=== PATIENT | female | born 1975 | race Caucasian/White ===

== ENCOUNTER → 2017-08-28 | Outpatient (CLI) | payer BC ==
[~2017-08-28] MED LIST: BIRTH CONTROL; CETI10; DEPO; DIPH50 PO; FLUT.05NI; GLIP2.5ER PO; HYDACE5 PO; HYDACE5325 PO; Humalog100 UNIT/1 SC; IBUP800 PO; INSLI75/25 SC; INSULANI SC; INSULANPEN SC; LEVSOD50 PO; LOPE2C PO; LORA.5 PO; METF500 PO; METF500C; METF850 PO; Novolog100 UNIT/1; OMEP20ER PO; ONDA4 PO; OXYACE5T PO; PIOG15; PRED20 PO; PRED5; PRODEXEL PO; PROM25 PO; RANI150 PO; RXHYD5325 PO; RXHYDACE PO; RXONDA4ODT MM; SERT50 PO; SUCR1 PO; ZOLP5 PO
[2017-08-30 12:39] LABS: HPV Genotype 16 Not Detected (NOTDET); HPV Genotype 18 Not Detected (NOTDET)
[2017-09-14 13:35] LABS: HPV High Risk Other Not Detected (NOTDET)
== END | disposition home or self-care (01) ==
LOC: LAB 18:32
PROVIDERS: Obstetrics & Gynecology
DX: Z01.419 Encounter for gynecological examination (general) (routine) without abnormal findings (principal)
CPT/HCPCS: 87624; G0123

== ENCOUNTER → 2018-02-14 | Outpatient (CLI) | payer BC | END | disposition home or self-care (01) | LOC: LAB 17:07 → LAB SHORT 17:07 | DX: R30.0 Dysuria (principal) | CPT/HCPCS: 87077; 87086; 87186 ==

== ENCOUNTER → 2018-09-25 | Outpatient (CLI) | payer BC | LOC: LAB EV 18:29 → LAB SHORT 18:29 | DX: N39.0 Urinary tract infection, site not specified (principal) | CPT/HCPCS: 87077; 87086; 87186 ==

== ENCOUNTER → 2018-10-24 | Outpatient (CLI) | payer BC | END | disposition home or self-care (01) | LOC: PLD 08:17 → LAB SHORT 08:17 | DX: N93.8 Other specified abnormal uterine and vaginal bleeding (principal) | CPT/HCPCS: 88305 ==

== ENCOUNTER 2018-11-16 11:21 | Day surgery (SDC) | payer BC ==
[~2018-11-16] VITALS: Ht 162.6 cm; Wt 248.4 kg
--- NOTE | 2018-11-16 13:23 | NUR ---
11/16/18 1323 Emeka Marinelli PT REPORTS ALLERGY TO LATEX AND BETADINE. VERIFIED WITH PT THE USE OF BETADINE GEL FOR PREP. PT OKAY WITH USING BETADINE GEL. WILL WASH PREP OFF AFTER PROCEDURE. USED CHLORAPREP FOR ABD PREP. NO LATEX ON FIELD.
--- NOTE | 2018-11-16 14:33 | NUR ---
11/16/18 1433 Maryam Ramos g 121
== END 2018-11-16 15:15 | disposition home or self-care (01) ==
LOC: ORSCSDS 11:21
PROVIDERS: Obstetrics & Gynecology
PROC: 0UT74ZZ Resection of Bilateral Fallopian Tubes, Percutaneous Endoscopic Approach (ICD-10-PCS; principal; 2018-11-16 12:30)
PROC: 0U5B8ZZ Destruction of Endometrium, Via Natural or Artificial Opening Endoscopic (ICD-10-PCS; principal; 2018-11-16 12:30)
DX: N92.1 Excessive and frequent menstruation with irregular cycle (principal); Z30.2 Encounter for sterilization; N83.8 Other noninflammatory disorders of ovary, fallopian tube and broad ligament; E11.9 Type 2 diabetes mellitus without complications; E03.9 Hypothyroidism, unspecified; E66.01 Morbid (severe) obesity due to excess calories; Z68.41 Body mass index [BMI] 40.0-44.9, adult; Z79.899 Other long term (current) drug therapy; Z79.82 Long term (current) use of aspirin
CPT/HCPCS: 82947; 88302; 88305; J1885; J2250; J2405; J2704; J2710; J2765; J3010

== ENCOUNTER → 2018-12-28 | Outpatient (CLI) | payer BC | END | disposition home or self-care (01) | LOC: LAB EV 13:21 → LAB SHORT 13:21 | DX: R30.0 Dysuria (principal); R35.0 Frequency of micturition | CPT/HCPCS: 87077; 87086; 87186 ==

== ENCOUNTER 2019-08-01 08:28 | Day surgery (SDC) | payer BC ==
[~2019-08-01] VITALS: Ht 160 cm; Wt 110.8 kg
[~2019-08-01 08:28] MED LIST changes: +ASCO500 PO; +GVOKE SYRI1 MG/0.2 M SC; +THERA1 EACH PO; +ZINC PO
--- NOTE | 2019-08-01 09:06 | NUR ---
History, Chart, Medications and Allergies reviewed before start of procedure. Patient confirms NPO status and agrees with scheduled surgery. Lungs clear T/O to Auscultation. Patient reports completing Chlorhexadine shower X1 prior to admission to hospital.
--- NOTE | 2019-08-01 09:48 | NUR ---
PATIENT SURGERY DELAYED FOR ANOTHER PROCEDURE.
--- NOTE | 2019-08-01 09:54 | NUR ---
OR REPORT COMPLETED AT BEDSIDE WITH JADON FORD RN.
--- NOTE | 2019-08-01 10:24 | NUR ---
DR CLEMENT IS HERE AT BEDSIDE TO CONSULT WITH PATIENT, DECISION MADE FOR PATIENT TO CHECK HER SUGAR AND CALIBRATE HER PUMP PRIOR TO SURGERY.
--- NOTE | 2019-08-01 18:20 | NUR ---
SHIFT SUMMARY PT A&OX4, VSS, S/P LAVH, 3 LAP SITES CDI. PAIN MANAGED WITH 5 MG PERCOCET & TORADOL. DENIES N&V, CANDICE PO ADA DIET. DEL ROSARIO PATENT & DRAINING YELLOW URINE, STAT LOCK ON, OFF FLOOR. PT REF [facility] - HAS INSULIN PUMP WHICH MANAGES HER DM2. LR @ 125 MLS/HR. AMBULATED HALLWAYS. WILL REPORT TO ONCOMING WILLIS PHAM.
[2019-08-02 04:38] LABS: BASOPHILS ABSOLUTE AUTO 0.03 K/mm3 (0.00-0.23); BASOPHILS PERCENT AUTO 0 % (0-2); EOSINOPHILS ABSOLUTE AUTO 0.03 K/mm3 (0.00-0.68); EOSINOPHILS PERCENT AUTO 0 % (0-6); Hematocrit 34.6 % (33.0-51.0); Hemoglobin 11.5 g/dL (11.5-16.0); IMMATURE GRAN ABSOLUTE AUTO 0.04 K/mm3 (0.00-0.10); IMMATURE GRAN PERCENT AUTO 0 % (0-1); LYMPHOCYTES ABSOLUTE AUTO 2.02 K/mm3 (0.84-5.20); LYMPHOCYTES PERCENT AUTO 17 % (21-46); MONOCYTES ABSOLUTE AUTO 0.94 K/mm3 (0.16-1.47); MONOCYTES PERCENT AUTO 8 % (4-13); Mean Corpuscular HGB 29.6 pg (26.0-34.0); Mean Corpuscular HGB Conc 33.2 g/dL (31.5-36.5); Mean Corpuscular Volume 89 fL (80-100); Mean Platelet Volume 10.2 fL (9.1-12.4); NEUTROPHILS ABSOLUTE AUTO 8.58 K/mm3 (1.96-9.15); NEUTROPHILS PERCENT AUTO 74 % (41-73); Platelet Count 262 K/mm3 (150-400); RDW Coefficient Variation 12.8 % (11.7-14.2); Red Blood Cell Count 3.88 M/mm3 (3.80-5.20); White Blood Cell Count 11.64 K/mm3 (4.00-11.30)
--- NOTE | 2019-08-02 07:10 | NUR ---
pt awake stated she did not sleep well last night passed some gas no nausea dressing c/d/i scant dried drainage to umbillicus pt stated she has went to bathroom a few times since the cath has been removed also stated her bs is improved since yesterday pt has a insulin pump pt wished the diet was less carbs more protein for a ada awaiting dr mcclelland
--- NOTE | 2019-08-02 07:38 | NUR ---
08/02/19 0738 Chiquita Oleary VERIFICATIONS: EDIT CHART.
--- NOTE | 2019-08-02 09:20 | NUR ---
dr mcclelland by to see pt ok to discharge home
[2019-08-02] MEDS ORDERED: IBUP800 PO (09:37)
[2019-08-02] MEDS ORDERED: Percocet 5-3251 EACH PO (09:37)
--- NOTE | 2019-08-02 10:00 | NUR ---
wc escort to car no acute changes rx given discharge instructions reviewed earlier
== END 2019-08-02 09:59 | disposition home or self-care (01) ==
LOC: ORSCMMR 08:28 → ORD 10:00 → ORSCMMR 10:00 → SURS 13:07 → ORSCMMR 08-02 09:59 → SURS 08-02 09:59
PROVIDERS: Obstetrics & Gynecology
PROC: 0UT9FZZ Resection of Uterus, Via Natural or Artificial Opening With Percutaneous Endoscopic Assistance (ICD-10-PCS; principal; 2019-08-01 10:00)
PROC: 0UT1FZZ Resection of Left Ovary, Via Natural or Artificial Opening With Percutaneous Endoscopic Assistance (ICD-10-PCS; principal; 2019-08-01 10:00)
PROC: 0UT6FZZ Resection of Left Fallopian Tube, Via Natural or Artificial Opening With Percutaneous Endoscopic Assistance (ICD-10-PCS; principal; 2019-08-01 10:00)
DX: N93.8 Other specified abnormal uterine and vaginal bleeding (principal); E10.9 Type 1 diabetes mellitus without complications; E03.9 Hypothyroidism, unspecified; Z79.4 Long term (current) use of insulin; Z79.899 Other long term (current) drug therapy; E66.01 Morbid (severe) obesity due to excess calories; Z68.41 Body mass index [BMI] 40.0-44.9, adult
CPT/HCPCS: 36415; 82947; 85025; 86850; 86900; 86901; 88307; J0690; J1100; J1885; J2250; J2405; J2704; J3010; J7120

== ENCOUNTER → 2019-08-21 | Outpatient (CLI) | payer BC ==
[~2019-08-21] MED LIST changes: +Percocet 5-3251 EACH PO
== END | disposition home or self-care (01) ==
LOC: LAB 15:32 → LAB SHORT 15:32
DX: R30.0 Dysuria (principal)
CPT/HCPCS: 87086

== ENCOUNTER 2019-11-29 08:05 | Emergency (ER) | payer BC ==
[~2019-11-29] VITALS: Ht 160 cm; Wt 111.1 kg
[2019-11-29 09:10] LABS: Source, Urine Clean Catch
[2019-11-29 09:13] LABS: Bilirubin, Urine Neg (Neg); Blood, Urine Neg (Neg); Glucose Qualitative, Urine 1+ (Neg); Ketones, Urine 3+ (Neg); Leukocyte Esterase, Urine Neg (Neg); Nitrite, Urine Neg (Neg); Protein, Urine Neg (Neg); Urobilinogen, Urine NORM (Normal)
[2019-11-29 09:26] LABS: BASOPHILS ABSOLUTE AUTO 0.06 K/mm3 (0.00-0.23); BASOPHILS PERCENT AUTO 1 % (0-2); EOSINOPHILS ABSOLUTE AUTO 0.13 K/mm3 (0.00-0.68); EOSINOPHILS PERCENT AUTO 2 % (0-6); Hematocrit 46.2 % (33.0-51.0); Hemoglobin 14.9 g/dL (11.5-16.0); IMMATURE GRAN ABSOLUTE AUTO 0.02 K/mm3 (0.00-0.10); IMMATURE GRAN PERCENT AUTO 0 % (0-1); LYMPHOCYTES ABSOLUTE AUTO 2.35 K/mm3 (0.84-5.20); LYMPHOCYTES PERCENT AUTO 34 % (21-46); MONOCYTES ABSOLUTE AUTO 0.52 K/mm3 (0.16-1.47); MONOCYTES PERCENT AUTO 8 % (4-13); Mean Corpuscular HGB 29.2 pg (26.0-34.0); Mean Corpuscular HGB Conc 32.3 g/dL (31.5-36.5); Mean Corpuscular Volume 90 fL (80-100); Mean Platelet Volume 10.1 fL (9.1-12.4); NEUTROPHILS ABSOLUTE AUTO 3.87 K/mm3 (1.96-9.15); NEUTROPHILS PERCENT AUTO 56 % (41-73); Platelet Count 248 K/mm3 (150-400); RDW Coefficient Variation 13.2 % (11.7-14.2); RDW Standard Deviation 43.9 fL (35.1-46.3); Red Blood Cell Count 5.11 M/mm3 (3.80-5.20); White Blood Cell Count 6.95 K/mm3 (4.00-11.30)
[2019-11-29 09:32] LABS: Appearance, Urine Clear (Clear); Color, Urine Yellow (P-Yellow)
[2019-11-29 09:37] LABS: Alanine Aminotransfer (ALT/SGP 23 U/L (12-78); Albumin, Blood 3.4 g/dL (3.4-5.0); Albumin/Globulin Ratio 0.9 (0.8-1.8); Alk Phos 59 U/L (50-136); Anion Gap 6 mmol/L (6-16); Aspartate Aminotrans (AST/SGOT 21 U/L (12-37); Bilirubin, Total 0.5 mg/dL (0.1-1.0); Blood Urea Nitrogen 12 mg/dL (8-24); Bun/Creatinine Ratio 18.4 (12.0-20.0); CO2, Blood 23 mmol/L (21-32); Calcium, Blood 8.6 mg/dL (8.5-10.1); Chloride, Blood 110 mmol/L (98-108); Creatinine, Blood 0.65 mg/dL (0.40-1.00); Globulin, Blood 3.9 g/dL (2.2-4.0); Glomerular Filtration Rate >60 (60-); Glucose, Blood 166 mg/dL (70-99); Sodium, Blood 139 mmol/L (136-145); Total Protein, Blood 7.3 g/dL (6.4-8.2)
[2019-11-29] MEDS ORDERED: Norco 5-325 Ta1 EACH PO (11:30)
[2019-11-29] MEDS ORDERED: ONDA4ODT MM (11:30)
== END 2019-11-29 11:38 | disposition home or self-care (01) ==
LOC: ER 08:05
PROVIDERS: Physician Assistant
DX: R10.32 Left lower quadrant pain (principal); E11.9 Type 2 diabetes mellitus without complications; F41.9 Anxiety disorder, unspecified; K21.9 Gastro-esophageal reflux disease without esophagitis; Z91.09 Other allergy status, other than to drugs and biological substances; Z91.040 Latex allergy status; Z88.2 Allergy status to sulfonamides; Z88.8 Allergy status to other drugs, medicaments and biological substances; Z88.5 Allergy status to narcotic agent; Z79.899 Other long term (current) drug therapy; Z79.4 Long term (current) use of insulin
CPT/HCPCS: 36415; 74176; 76770; 80053; 81003; 83690; 85025; 96374; 96376; 99284-25; J1170

== ENCOUNTER → 2019-12-22 | Outpatient (CLI) | payer BC ==
[~2019-12-22] MED LIST changes: +Norco 5-325 Ta1 EACH PO; +ONDA4ODT MM
== END | disposition home or self-care (01) ==
LOC: LAB SHORT 15:17 → LAB EV 15:17
DX: N39.0 Urinary tract infection, site not specified (principal)
CPT/HCPCS: 87086

== ENCOUNTER → 2020-02-11 | Outpatient (CLI) | payer BC, OTHER | END | disposition home or self-care (01) | LOC: LAB EV 12:39 → LAB SHORT 12:39 | DX: J06.9 Acute upper respiratory infection, unspecified (principal); Z20.828 Contact with and (suspected) exposure to other viral communicable diseases | CPT/HCPCS: U0003 ==

== ENCOUNTER 2020-12-16 07:03 | Emergency (ER) | payer BC ==
[~2020-12-16] VITALS: Ht 162.6 cm; Wt 111.1 kg
== END 2020-12-16 08:36 | disposition home or self-care (01) ==
LOC: ER 07:03
DX: S96.911A Strain of unspecified muscle and tendon at ankle and foot level, right foot, initial encounter (principal); E11.9 Type 2 diabetes mellitus without complications; K21.9 Gastro-esophageal reflux disease without esophagitis; Z79.899 Other long term (current) drug therapy; Z79.4 Long term (current) use of insulin; Z91.041 Radiographic dye allergy status; Z91.040 Latex allergy status; Z88.2 Allergy status to sulfonamides; Z88.5 Allergy status to narcotic agent; W10.9XXA Fall (on) (from) unspecified stairs and steps, initial encounter
CPT/HCPCS: 73590; 73610; 99283-25; A9270

== ENCOUNTER 2021-03-12 09:47 | Day surgery (SDC) | payer BC ==
[~2021-03-12] VITALS: Ht 162.6 cm; Wt 111.0 kg
[~2021-03-12 09:47] MED LIST changes: +HUMALOG KW100 UNIT/1 SC; +INSULIN LI100 UNIT/7 SC; +LIVALO1 MG PO
[2021-03-12] MEDS ORDERED: INSULANI (10:03)
--- NOTE | 2021-03-12 13:43 | NUR ---
PT ABLE TO REPOSITION IN BED, TOLERATING PO FOOD AND FLUID. CAP REFILL ON RIGHT FOOT LESS THAN 3. NO SWELLING OR REDNESS NOTED. NO DRAINAGE OR BLEEDING PRESENT ON SPINT AND DORYS BANDAGE WRAP. ICE PACKS PROVIDED.
--- NOTE | 2021-03-12 14:13 | NUR ---
Discharge instructions reviewed with patient. Patient verbalizes understanding. Copy given to patient to take home. Patient States Post-Procedure ride home has been arranged. Discharged via wheelchair to private car for ride home. ALL BELONGINGS RETURNED TO PATIENT. CAP REFILL ON RIGHT FOOT LESS THAN 3. DRESSING ON RIGHT FOOT CLEAN AND IN TACT. NO SWELLING, BLEEDING OR DRAINAGE NOTED.
--- NOTE | 2021-03-15 07:35 | NUR ---
03/15/21 0735 Chiquita Oleary VERIFICATIONS: EDIT CHART.
== END 2021-03-12 14:29 | disposition home or self-care (01) ==
LOC: ORSCMMR 09:47 → ORD 11:15 → ORSCMMR 11:15
PROVIDERS: Podiatrist Foot & Ankle Surgery
PROC: 0SBF4ZZ Excision of Right Ankle Joint, Percutaneous Endoscopic Approach (ICD-10-PCS; principal; 2021-03-12 11:15)
PROC: 0MQQ0ZZ Repair Right Ankle Bursa and Ligament, Open Approach (ICD-10-PCS; principal; 2021-03-12 11:15)
DX: S93.431A Sprain of tibiofibular ligament of right ankle, initial encounter (principal); M76.821 Posterior tibial tendinitis, right leg; E11.9 Type 2 diabetes mellitus without complications; E03.9 Hypothyroidism, unspecified; Z79.4 Long term (current) use of insulin; Z79.899 Other long term (current) drug therapy; E66.01 Morbid (severe) obesity due to excess calories; Z68.41 Body mass index [BMI] 40.0-44.9, adult
CPT/HCPCS: 82947; A9270; C1713; C1776; J0171; J0690; J1100; J1885; J2001; J2250; J2405; J2704; J3010; J7120

== ENCOUNTER → 2022-09-20 | Outpatient (CLI) | payer BC ==
[~2022-09-20] MED LIST changes: +INSULANI
== END | disposition home or self-care (01) ==
LOC: LAB SHORT 08:55 → LAB 08:55
DX: R30.0 Dysuria (principal)
CPT/HCPCS: 87077; 87086; 87186

== ENCOUNTER → 2023-01-25 | Outpatient (CLI) | payer BC | LOC: LAB SHORT 13:10 → LAB 13:10 | DX: R30.0 Dysuria (principal) | CPT/HCPCS: 87077; 87086; 87186 ==

== ENCOUNTER 2023-02-17 06:08 | Day surgery (SDC) | payer BC ==
[~2023-02-17] VITALS: Ht 160 cm; Wt 101.2 kg
[2023-02-17] MEDS ORDERED: MOUNJARO2.5 MG/0.5 SC (07:15)
[2023-02-17] MEDS ORDERED: PARO10 PO (07:16)
--- NOTE | 2023-02-17 07:34 | NUR ---
02/17/[address] [facility]28. 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 ALLERGY TO IODINE AND LATEX COMMUNCIATED TO MIGUE BRUNO STATES IODINE ALLERGY WAS AN INTERNAL REACTION DURING A VAGINAL PROCEDURE AND WAS HIVES. PATIENT STATES HAS NO ANAPHYLACTIC ALLERGIES.
[2023-02-17 09:45] VITALS: BP 140/89
--- NOTE | 2023-02-17 10:08 | NUR ---
02/17/23 1008 Donna Burger 1000 IV REMOVED, CANNULA INTACT PT CANDICE WELL. DENIES NAUSEA AND REPORTS PAIN IS TOLERABLE, PT VERBALIZED READINESS TO GO HOME
== END 2023-02-17 10:02 | disposition home or self-care (01) ==
LOC: ORSCSDS 06:08
PROVIDERS: Podiatrist Foot & Ankle Surgery
PROC: 01N50ZZ Release Median Nerve, Open Approach (ICD-10-PCS; principal; 2023-02-17 07:30)
PROC: 0QP104Z Removal of Internal Fixation Device from Sacrum, Open Approach (ICD-10-PCS; principal; 2023-02-17 07:30)
DX: G56.01 Carpal tunnel syndrome, right upper limb (principal); T84.84XA Pain due to internal orthopedic prosthetic devices, implants and grafts, initial encounter; E03.9 Hypothyroidism, unspecified; E10.8 Type 1 diabetes mellitus with unspecified complications; E66.9 Obesity, unspecified; Z68.39 Body mass index [BMI] 39.0-39.9, adult; Z79.4 Long term (current) use of insulin; Z79.899 Other long term (current) drug therapy
CPT/HCPCS: 82947; A9270; J0171; J0690; J1100; J1885; J2250; J2310; J2405; J2704; J2795; J3010; J7120

== ENCOUNTER → 2023-04-03 | Outpatient (CLI) | payer BC ==
[~2023-04-03] MED LIST changes: +MOUNJARO2.5 MG/0.5 SC; +PARO10 PO
== END | disposition home or self-care (01) ==
LOC: LAB SHORT 12:47 → LAB 12:47
DX: E10.9 Type 1 diabetes mellitus without complications (principal)
CPT/HCPCS: 83036

== ENCOUNTER → 2023-10-23 | Outpatient (CLI) | payer BC | LOC: LAB 18:13 → LAB SHORT 18:13 | DX: R30.0 Dysuria (principal) | CPT/HCPCS: 87077; 87086; 87186 ==

== ENCOUNTER → 2024-03-25 | Outpatient (CLI) | payer BC ==
[2024-03-25 13:03] LABS: Protein, Urine Quantitative 7.8 mg/dL (0.0-11.9)
== END | disposition home or self-care (01) ==
LOC: LAB 04:00 → LAB SHORT 04:00
PROVIDERS: Internal Medicine Endocrinology, Diabetes & Metabolism
DX: E10.42 Type 1 diabetes mellitus with diabetic polyneuropathy (principal)
CPT/HCPCS: 81050; 84156

== ENCOUNTER 2024-05-17 06:38 | Day surgery (SDC) | payer BC ==
[~2024-05-17] VITALS: Ht 160 cm; Wt 78.9 kg
[2024-05-17] MEDS ORDERED: MOUNJARO12.5 MG/0. (07:06)
[2024-05-17] MEDS ORDERED: propofoL 50 ML IV ONE (07:33)
[2024-05-17] MEDS ORDERED: Lactated Ringer's 1,000 ML IV ONE ×2 (07:33→07:44)
[2024-05-17 09:01] VITALS: BP 137/76
== END 2024-05-17 08:50 | disposition home or self-care (01) ==
LOC: ORSCSDS 06:38
PROVIDERS: Surgery
PROC: 0DJD8ZZ Inspection of Lower Intestinal Tract, Via Natural or Artificial Opening Endoscopic (ICD-10-PCS; principal; 2024-05-17 08:00)
DX: Z12.11 Encounter for screening for malignant neoplasm of colon (principal); E10.8 Type 1 diabetes mellitus with unspecified complications; Z79.85 Long-term (current) use of injectable non-insulin antidiabetic drugs; Z79.4 Long term (current) use of insulin; Z79.84 Long term (current) use of oral hypoglycemic drugs; Z79.899 Other long term (current) drug therapy
CPT/HCPCS: 82947; J2704; J7120

== ENCOUNTER 2025-01-13 06:27 | Emergency (ER) | payer BC ==
[~2025-01-13] VITALS: Ht 160 cm; Wt 73.5 kg
[~2025-01-13 06:27] MED LIST changes: +MOUNJARO12.5 MG/0.
[2025-01-13] MEDS ORDERED: Diazepam 5 MG / ML 2ML SYR IV ONE (07:25)
[2025-01-13] MEDS ORDERED: Dexamethasone Sod Phos 10 MG/ML 1ML VIAL IV ONE (07:25)
[2025-01-13] MEDS ORDERED: Ketorolac Tromethamine 30mg Vial IV ONE (07:25)
[2025-01-13] MEDS ORDERED: OxyCODONE 7.5 mg/Acetam 325 mg TABLET PO ONE (08:30)
[2025-01-13] MEDS ORDERED: OXYACE7.5T PO (08:43)
[2025-01-13] MEDS ORDERED: CYCL10 PO (08:43)
[2025-01-13 09:16] VITALS: BP 160/90
== END 2025-01-13 09:14 | disposition home or self-care (01) ==
LOC: ER 06:27
DX: S39.012A Strain of muscle, fascia and tendon of lower back, initial encounter (principal); M54.15 Radiculopathy, thoracolumbar region; E11.9 Type 2 diabetes mellitus without complications; K21.9 Gastro-esophageal reflux disease without esophagitis; E89.0 Postprocedural hypothyroidism; Z91.041 Radiographic dye allergy status; Z91.040 Latex allergy status; Z88.8 Allergy status to other drugs, medicaments and biological substances; Z88.2 Allergy status to sulfonamides; Z88.5 Allergy status to narcotic agent; Z88.1 Allergy status to other antibiotic agents; Z79.890 Hormone replacement therapy; Z79.4 Long term (current) use of insulin; Z79.85 Long-term (current) use of injectable non-insulin antidiabetic drugs; Z79.899 Other long term (current) drug therapy; X50.0XXA Overexertion from strenuous movement or load, initial encounter
CPT/HCPCS: 72070; 72100; 96374; 96375; 99283-25; A9270; J1100; J1885; J3360